=== PATIENT | female | born 1995 | race Two or more races ===

== ENCOUNTER 2025-05-01 12:36 | Emergency (ER) | payer MEDICAID, SELFPAY ==
--- NOTE | 2025-05-01 | XR_ITS ---
Examination: MRI brain without intravenous contrast. Date and time of exam: May 01, 2025, 1824 hrs. Indications: Onset headaches and ataxia beginning 6 hours ago, subtle low density in the left temporal lobe on CT brain scan today Technique: Multiple axial and sagittal images of the brain obtained. Siemens high-resolution 1.5 Shannan short bore scanners utilized. Sagittal sections, T1-weighted, TR 500, TE 14, are performed. Axial sections proton-density and T2-weighted have been obtained. Inversion recovery axial images, TR 9, 260, TE 111, TI 2500. Diffusion weighted images, axial sections, TR 4800, TE 128, B value 1000 Axial sections, ADC map, TR 4800, TE 128 Findings: Enlargement of the sella turcica is not present. The optic chiasm and infundibular are not remarkable. Prepontine and interpeduncular cisterns are not enlarged. There is no localized enlargement of the medulla or valentin. Fourth ventricle and cerebellar tonsils appear normal in position. No subacute area of hemorrhage density is seen. Mass in the cerebellopontine angle region is not evident. Globes symmetrical. Orbital musculature including medial lateral rectus muscles do not exhibit abnormality. Diffusion-weighted images demonstrate no focus of restricted diffusion. Increased white matter signal not seen Mass effect upon the ventricular system is not identified. Impression: Negative for acute hemorrhage mass effect or midline shift No acute infarct No MR findings of demyelinating disease
[2025-05-01 12:51] VITALS: BP 133/86; PULSE 73; RESP 16; TEMP 37.1; O2SAT 98
--- NOTE | 2025-05-01 12:58 | XR_ITS ---
Examination: CT brain head without contrast. 2-D sagittal coronal reconstructions Date and time of exam:May 01, 2025, 1332 hours INDICATIONS: Headaches and ataxia beginning 6 hours ago CTDI: vol (mGy):7.9 DLP: (mGycm):986 Technique: Multiple CT axial sections of the brain have been obtained, 5 mm slice thickness. Contrast has not been administered. 2-D sagittal, coronal reconstructions have been obtained Low dose protocols were performed. One or more of the following dose reduction techniques were used; automated exposure control, adjustment of the mA and/or KV according to patient size, use of iterative reconstruction technique. Findings: No significant ventricular enlargement. Low density, solid which may be artifactual the left temporal lobe, axial image 28 Intra-axial or extra-axial hemorrhage density is not seen. No mass effect or midline shift Basal cisterns are not remarkable. Fourth ventricle is midline. Cranial vault intact. Impression: Subtle low density in the left temporal lobe, axial image 28, which may be artifactual, early edema not excluded Given the patient's history, particularly issues with balance, as clinically warranted, consider recommend brain MRI MRA without contrast, stroke protocol, follow-up
--- NOTE | 2025-05-01 12:59 | PD.EDRME ---
Rapid Medical Screening Exam RME Arrival date/time: 05/01/25 29-year-old female presents to the Emergency Department today for complaints of headaches intermittent for last couple of months reports dizziness this morning Chief Complaint: Headache Time Seen by Provider: 05/01/25 12:47 Vital signs: Vital Signs Temperature 98.7 F 05/01/25 12:51 Pulse Rate 73 05/01/25 12:51 Respiratory Rate 16 05/01/25 12:51 Blood Pressure 133/86 H 05/01/25 12:51 Pulse Oximetry (%) 98 05/01/25 12:51 Oxygen Delivery Method Room Air 05/01/25 12:51
[2025-05-01 13:14] LABS: Basophils # (Auto) 0.0 Thou/mm3 (0.0-0.2); Basophils % (Auto) 1 % (0-2.5); Eosinophils # (Auto) 0.1 Thou/mm3 (0.0-0.5); Eosinophils % (Auto) 1 % (0-10); Hematocrit 39.5 % (36.0-46.0); Hemoglobin 12.7 g/dL (12.0-16.0); Immature Granulocytes Auto 0.01 Thou/mm3 (0.00-0.00); Lymphocytes # (Auto) 1.5 Thou/mm3 (1.0-4.8); Lymphocytes % (Auto) 31 % (10-50); Mean Corpuscular HGB Conc 32.2 g/dl (31.0-37.0); Mean Corpuscular Hemoglobin 28.0 pg (25.0-35.0); Mean Corpuscular Volume 87 fL (80-100); Monocytes # (Auto) 0.4 Thou/mm3 (0.0-0.8); Monocytes % (Auto) 9 % (0-12); Neutrophils # (Auto) 2.8 Thou/mm3 (1.8-7.7); Neutrophils % (Auto) 58 % (37-80); Nucleated Red Blood Cell # 0.00 Thou/mm3 (0.00-0.00); Nucleated Red Blood Cell % 0 /100 WBC (0); Platelet Count 240 Thou/mm3 (140-440); RDW Standard Deviation 41.5 fL (36.4-46.3); Red Blood Count 4.53 Miln/mm3 (4.00-5.20); White Blood Count 4.9 Thou/mm3 (3.6-11.0)
--- NOTE | 2025-05-01 13:24 | PC.NURSE ---
CALLED CT, NO ANSWER.
[2025-05-01 13:37] LABS: HCG,Qualitative Serum Negative
[2025-05-01 13:40] LABS: Alanine Aminotransferase 29 U/L (10-49); Albumin, Serum 4.4 gm/dL (3.5-5.0); Albumin/Globulin Ratio 1.7 (1.2-2.2); Alkaline Phosphatase 46 U/L (46-116); Anion Gap 6 (7-16); Aspartate Amino Transferase 23 U/L (0-34); BUN/Creatinine Ratio 16 Ratio (12-20); Bilirubin,Total 0.3 mg/dL (0.3-1.2); Blood Urea Nitrogen 11 mg/dL (9-23); Calcium 9.4 mg/dL (8.3-10.6); Calcium (Corrected) 9.4 mg/dL (8.5-10.1); Carbon Dioxide 27.9 mMol/L (20.0-31.0); Chloride 109 mMol/L (98-107); Creatinine (Component) 0.7 mg/dL (0.6-1.3); Estimated Creatinine Clearance 111.1 mL/min (>60); Globulin 2.6 gm/dL (2.3-3.5); Glucose 93 mg/dL (74-106); Osmolality,Calculated 284 (275-295); Potassium 4.2 mMol/L (3.4-5.1); Sodium 143 mMol/L (136-145); Total Protein 7.0 gm/dL (5.7-8.2); eGFR > 60 See Note
--- NOTE | 2025-05-01 16:19 | EDNOTE_ITS ---
ED Headache RME/HPI General Chief Complaint: Headache Stated Complaint: HEADACHE, OFF BALANCE THIS AM Time Seen by Provider: 05/01/25 12:47 Arrival date/time: 05/01/25 12:36 RME / HPI RME / HPI Narrative: 29-year-old female patient with no significant past medical history, came in for evaluation regarding worsening chronic headache. She been having headache for several months, usually in the morning, but this morning patient was noted to be dizzy and off balance. Patient denies any slurring speech denies any upper or lower extremity focal neurologic deficit. Currently patient is denying any off balance. Patient told me that she was told by her that she snores a lot during the night. Related Data Previous Rx's ?Medication ?Instructions ?Recorded rizatriptan 10 mg tablet (Maxalt) 10 mg PO Q2H PRN todd piña headache 05/01/25 #20 tabs Allergies Allergy/AdvReac Type Severity Reaction Status Date / Time No Known Allergies Allergy Verified 05/01/25 12:41 Review of Systems Review of Systems Narrative Review of Systems: Review of system reviewed and within normal limits except mentioned in HPI ED Exam Narrative Physical exam: VITAL SIGNS: Reviewed. GENERAL APPEARANCE: Alert and interactive, follows commands, no acute distress, HEAD AND FACE: Non-traumatic. ENT: PERRL, pink conjunctivitis, eyelid no trauma, Mucous membrane moist. NECK: Supple, nontender, no nuchal rigidity. CHEST: No tenderness, no crepitus, no paradoxical movement, no retractions. LUNGS: Clear, well ventilated, symmetric, no rales, no wheezing, no ronchi, no stridor, good breath sounds bilaterally. HEART: Regular rate, regular rhythm, no murmur, no gallops. ABDOMEN: Soft, positive bowel sounds, nondistended, no guarding, nontender, no r ebound, no masses, RECTAL: Deferred. GENITAL: Deferred. NEUROLOGICAL: Gross motor function intact sensory function intact, Appropriate for age. MUSCULOSKELETAL: low back nontender, full range of motion. EXTREMITIES: Nontender, full range of motion. SKIN: Color pink, dry, no rash, no lacerations, no abrasions, no contusions. LYMPHATICS: Deferred. Course Quality Measures none Orders Category Date Time Status MRI Screening NOW Care 05/01/25 16:[address] head/brain wo con Stat Exams 05/01/25 12:58 Completed MR head/brain wo con Stat Exams 05/01/25 Completed CBC Stat Lab 05/01/25 13:02 Completed CMP [Comprehensive Metabolic Panel] Stat Lab 05/01/25 13:02 Completed HCG,Qualitative Serum Stat Lab 05/01/25 13:02 Completed Acetaminophen Tab [Tylenol ES Tab] Med 05/01/25 16:18 Discontinued 1,000 mg PO X1 ONE DiphenhydrAMINE [Benadryl] Med 05/01/25 16:18 Discontinued 50 mg PO X1 ONE Metoclopramide [Reglan] Med 05/01/25 16:18 Discontinued 10 mg PO X1 ONE Vital Signs Vital signs: Vital Signs Temperature 98.7 F 05/01/25 12:51 Pulse Rate 73 05/01/25 12:51 Respiratory Rate 16 05/01/25 12:51 Blood Pressure 133/86 H 05/01/25 12:51 Pulse Oximetry (%) 98 05/01/25 12:51 Oxygen Delivery Method Room Air 05/01/25 12:51 Headache MDM Narrative MDM Narrative:: 29-year-old female patient with no significant past medical history, came in for evaluation regarding worsening chronic headache. She been having headache for several months, usually in the morning, but this morning patient was noted to be dizzy and off balance. Patient denies any slurring speech denies any upper or lower extremity focal neurologic deficit. Currently patient is denying any off balance. Patient told me that she was told by her that she snores a lot during the night. Patient's laboratory workup all came back unremarkable. Except for possible abnormality noted on the CT scan so I ordered for MRI of the brain which showed no acute abnormality. Results discussed with the patient and patient was also given a copy of her CT scan. I advised the patient to follow-up with PCP and asked for sleep study to rule out sleep apnea. Which were the reason for her headache every morning. Currently patient not having any headache prior to discharge. Patient data External records reviewed:: None Clinical information provided by:: patient Social determinants that could affect healthcare access:: none Patient has the following chronic illnesses:: None How is presenting disease/condition affected by chronic disease/condition?: no chronic disease Evaluation data The following diagnostics were reviewed and interpreted by me:: lab results and radiology exam(s) Lab and/or radiology exams considered but not ordered:: None Interpretation Summary: None Medications / Prescriptions Medications or Prescriptions considered but not ordered:: None Medication administrations:: Medication Administration History Discontinued Medications Acetaminophen (Acetaminophen 500 Mg Tablet) 1,000 mg PO X1 ONE Stop: 05/01/25 16:19 Last Admin: 05/01/25 16:44 Dose: 1,000 mg Documented By: PATRICIA Diphenhydramine HCl (Diphenhydramine 25 Mg Capsule) 50 mg PO X1 ONE Stop: 05/01/25 16:19 Last Admin: 05/01/25 16:44 Dose: 50 mg Documented By: PATRICIA Metoclopramide HCl (Metoclopramide 5 Mg Tablet) 10 mg PO X1 ONE Stop: 05/01/25 16:19 Last Admin: 05/01/25 16:44 Dose: 10 mg Documented By: PATRICIA Regashly Benadryl and Tylenol Consultations Consultation(s) initiated? (list below): No Diagnosis Differential diagnosis headache: migraine, tension headache and headache Most likely diagnosis given after review of the tests above:: Headache Admission Indicated Admission indicated?: not indicated Admission Request Was there a request for admission?: No Disposition Plan Disposition Plan: Discharge Discharge Attestation Discharge Attestation: The patient was given an opportunity to ask questions and understood the discharge instructions. Discharge instructions specifically effects, indications for sooner follow up or return to the emergency department, and the expected course of current diagnosis. Patient condition: Stable Discharge Plan Plan Patient Disposition: HOME (Self Care) Discharge Disposition comment: Stable Prescriptions/Referrals Prescriptions/Med Rec: New rizatriptan [Maxalt] 10 mg tablet 10 mg PO Q2H PRN (Reason: migraine headache) Qty: 20 0RF Rx Instructions: do not exceed 3 doses per 24 hrs Referrals: No Primary/Family,Physician [Primary Care Provider] - In 1 week Problem List Clinical Impression: Headache Patient/Caregiver Discharge Instructions Discharge Activity: activity as tolerated Education Materials: Self-Care for Headaches Additional Instructions: Thank you for the opportunity for serving you today. You are stable for discharged . You are advised to: Follow-up with your PCP in 1 to 2 days Return to ED for worsening of symptoms Increase oral fluids Take medication as prescribed Please ask your PCP to refer you to our sleep study to rule out obstructive sleep apnea which could be the reason why you are having headache every morning. Print Language: Tongan Stand Alone Forms: [employer] Patient Portal Info Letter PA/GREASER OPERATOR Supervising Physician PA/GREASER OPERATOR Supervising Physician: MD Rodney
[2025-05-01 16:24] VITALS: BP 120/88; PULSE 72; RESP 15; TEMP 36.7; O2SAT 100
[2025-05-01] MEDS: METOCLOPRAMIDE 5 MG TABLET 10 MG PO (16:44)
[2025-05-01] MEDS: ACETAMINOPHEN 500 MG TABLET 1000 MG PO (16:44)
--- NOTE | 2025-05-01 16:45 | PC.NURSE ---
Patient to er with c/o gen. head pressure, dizziness and feeling off balance that started at approx. 1000am, MRI check list complete and medications given per provider orders
[2025-05-01 18:29] VITALS: BP 129/76; PULSE 70; RESP 16; O2SAT 100
--- NOTE | 2025-05-01 18:40 | PC.NURSE ---
Patient gone MRI
[2025-05-01 20:29] VITALS: BP 127/61; PULSE 72; RESP 16; TEMP 36.7; O2SAT 98
== END 2025-05-01 20:30 | disposition home or self-care (01) ==
PROVIDERS: Nurse Practitioner Primary Care; Emergency Provider Emergency Medicine
DX: R51.9 Headache, unspecified (principal)
CPT/HCPCS: 36415; 70450; 70551; 80053; 84703; 85025; 99284; A9270